=== PATIENT | female | born 1980 | race Caucasian/White ===

== ENCOUNTER 2022-03-15 22:35 | Inpatient (IN) | payer BC ==
[2022-03-15] MEDS ORDERED: FENTANYL 50 MCG/ML 1 ML VIAL ONE (23:53)
[2022-03-15] MEDS ORDERED: Octreotide Acetate 500 MCG/ML VIAL ONE (23:53)
[2022-03-15] MEDS ORDERED: LORazepam 2 MG/ML SYR.(CARPUJECT) ONE (23:58)
[2022-03-15] MEDS ORDERED: Octreotide Acetate 50 MCG/ML AMP SLOW IVP SCH (23:59)
[2022-03-16 00:03] LABS: Pregnancy Test - Urine (BHCG) Negative (Negative); Pregu Control Background? CLEAR/WHITE (CLR/WHITE); Pregu Control Bar Appear? YES (CONTROL BAR); Specific Gravity 1.021 (1.002-1.036)
[2022-03-16 00:12] LABS: Bilirubin Negative (Negative); Blood, Urine Negative (Negative); Clarity Turbid (Clear); Glucose, Urine (Dipstick) Normal (Negative); Ketone, Urine 20 mg/dL (Negative); Leukocyte 25 Leu/uL (Negative); Nitrite Negative (Negative); Protein, Urine (Dipstick) 30 mg/dL (Neg-Trace); Specific Gravity, Urine 1.021 (1.002-1.036); Urobilinogen Normal mg/dL (Less than 2)
[2022-03-16] MEDS ORDERED: Octreotide Acetate 1,250 MCG in Sodium Chloride 0.9% 250 ML 250 ML IVPB SCH ×2 (00:15→02:30)
[2022-03-16 00:21] LABS: Hemoglobin 9.5 g/dL (12.0-16.0); Mean Corpuscular HGB CONC 34.1 g/dL (32.0-36.0); Mean Corpuscular Hemoglobin 32.4 pg (27.0-31.0); Mean Corpuscular Volume 94.9 fl (78.0-98.0); Mean Platelet Volume 7.7 fL (7.4-10.4); Platelet Count 146 10x3/uL (130-400); RBC Distribution Width 15.1 % (11.5-14.5)
[2022-03-16 00:31] LABS: BHCG - Serum Negative (NEGATIVE); Pregs Control Background? CLEAR/WHITE (CLR/WHITE); Pregs Control Bar Appear? YES (CONTROL BAR)
[2022-03-16 00:32] LABS: Bacteria/HPF 2+ HPF (None Seen); Squamous Epithelial 0-3 HPF (0-3); WBC/HPF 0-3 HPF (0-3)
[2022-03-16 00:33] LABS: INR-International Normal Ratio 2.3; PTT 34.4 sec (22.9-36.1); Prothrombin Time 26.4 sec (12.0-14.7)
[2022-03-16 00:36] LABS: Calcium Oxalate Crystals 1+ HPF (None Seen)
[2022-03-16 00:39] LABS: ALT (SGPT) 468 U/L (8-55); AST (SGOT) 1129 U/L (5-34); Albumin 3.5 g/dL (3.5-5.0); Alkaline Phosphatase 132 U/L (40-110); Anion Gap 23 mmol/L (10-20); BUN (Urea Nitrogen) 20 mg/dL (7.0-18.7); Bilirubin, Total 5.5 mg/dL (0.2-1.2); CK (CPK) 166 U/L (29-168); Calc. Creatinine Clearance 0 mL/min (70-130); Calcium 8.4 mg/dL (7.8-10.44); Carbon Dioxide 16 mmol/L (22-29); Chloride 108 mmol/L (98-107); Estimated GFR 67; Globulin 3.5 g/dL (2.4-3.5); Glucose 122 mg/dL (70-105); Lipase 4 U/L (8-78); Potassium 4.9 mmol/L (3.5-5.1); Sodium 142 mmol/L (136-145)
[2022-03-16 00:49] LABS: Anisocytosis SLIGHT = 6-15 cells (100X) (0-5/hpf); Band 16 % (5-11); Lymphocytes 6 % (21-51); MDiff Complete? YES; Monocytes 5 % (0-10); Neutrophil 72 % (42-75); Platelet Morphology Comment Appears Adequate; Red Blood Cell (RBC) Count 2.92 mill/uL (4.20-5.40); White Blood Cell (WBC) Count 21.3 10x3/uL (4.8-10.8)
[2022-03-16 00:52] LABS: Acetaminophen Less than 10.0 mcg/mL (10.0-30.0); Alcohol Less than 10 mg/dL (Less than 10); Salicylate Less than 8.0 mg/dL (15.0-30.0)
[2022-03-16 01:08] LABS: Amphetamine Not Detected (NotDetected); Barbiturates Screen Not Detected (NotDetected); Benzodiazepine Screen Not Detected (NotDetected); Cocaine Metabolite Screen Not Detected (NotDetected); Methadone Not Detected (NotDetected); Methamphetamine Not Detected (NotDetected); Opiate Screen Detected (NotDetected); Oxycodone Screen Not Detected (NotDetected); Phencyclidine (PCP) Not Detected (NotDetected); THC/Cannabinoid Screen Not Detected (NotDetected); Tricyclic Screen Detected (NotDetected)
[2022-03-16] MEDS ORDERED: Sodium Chloride 0.9% 1,000 ML IV SCH (02:15)
[2022-03-16] MEDS ORDERED: Ondansetron PF 4 MG/2 ML Vial IVP PRN (02:24)
[2022-03-16] MEDS ORDERED: cefTRIAXone\\ROCEPHIN 1 GM VIAL ONE (02:27)
[2022-03-16] MEDS ORDERED: Pantoprazole 80 MG in Sodium Chloride 0.9% 100 ML IVP SCH (02:30)
[2022-03-16 02:48] LABS: Hemoglobin 9.3 g/dL (12.0-16.0); Mean Corpuscular HGB CONC 33.7 g/dL (32.0-36.0); Mean Corpuscular Hemoglobin 32.8 pg (27.0-31.0); Mean Corpuscular Volume 97.4 fl (78.0-98.0); Mean Platelet Volume 8.2 fL (7.4-10.4); Platelet Count 110 10x3/uL (130-400); RBC Distribution Width 15.5 % (11.5-14.5); Red Blood Cell (RBC) Count 2.82 mill/uL (4.20-5.40); White Blood Cell (WBC) Count 18.6 10x3/uL (4.8-10.8)
[2022-03-16] MEDS ORDERED: Lorazepam 2 MG/ML VIAL SLOW IVP SCH (03:15)
[2022-03-16] MEDS ORDERED: LORazepam 2 MG/ML SYR.(CARPUJECT) IVP SCH (03:15)
[2022-03-16] MEDS ORDERED: Lorazepam 1 MG TAB PO PRN (03:25)
[2022-03-16] MEDS ORDERED: Lorazepam 2 MG/ML VIAL IM PRN (03:25)
[2022-03-16] MEDS ORDERED: Electrolyte Replacement Protocol 1 EACH FS SCH (03:30)
[2022-03-16] MEDS ORDERED: LORazepam 2 MG/ML SYR.(CARPUJECT) ONE (03:45)
[2022-03-16 04:33] LABS: INR-International Normal Ratio 2.5; PTT 37.4 sec (22.9-36.1); Prothrombin Time 28.2 sec (12.0-14.7)
[2022-03-16 04:55] LABS: Lactic Acid 4.7 mmol/L (0.5-2.2)
[2022-03-16 05:23] LABS: ALT (SGPT) 500 U/L (8-55); AST (SGOT) 1461 U/L (5-34); Albumin 3.1 g/dL (3.5-5.0); Alkaline Phosphatase 108 U/L (40-110); Anion Gap 17 mmol/L (10-20); BUN (Urea Nitrogen) 18 mg/dL (7.0-18.7); Bilirubin, Total 4.4 mg/dL (0.2-1.2); Calc. Creatinine Clearance 0 mL/min (70-130); Calcium 7.2 mg/dL (7.8-10.44); Carbon Dioxide 16 mmol/L (22-29); Chloride 112 mmol/L (98-107); Estimated GFR 90; Globulin 2.9 g/dL (2.4-3.5); Glucose 195 mg/dL (70-105); Potassium 4.9 mmol/L (3.5-5.1); Sodium 140 mmol/L (136-145)
[2022-03-16 05:25] VITALS: BMI 30.8
[2022-03-16 05:28] LABS: Critical Call Chem Troponin I RESULT DECREASING
[2022-03-16 05:32] LABS: SARS-CoV-2 NAA Rapid Test Not Detected (NotDetected)
[2022-03-16] MEDS: Multivitamins, Adult 10 ML, Folic Acid 1 MG, Thiamine HCl 100 MG in Dextrose 5 %-0.45 %... IV SCH (06:10)
[2022-03-16] MEDS: Lorazepam 1 MG TAB PO SCH ×4 (06:10→18:20)
[2022-03-16 08:05] LABS: Critical Call Chem Troponin I RESULT DECREASING; Troponin I 0.856 ng/mL (< 0.028)
[2022-03-16] MEDS ORDERED: FLU VACC QS2022-23(6MOS UP)/PF 60 MCG/0.5 ML SYRINGE IM ONE (09:00)
[2022-03-16] MEDS ORDERED: Propranolol HCl 20 MG TAB PO SCH (09:00)
[2022-03-16] MEDS ORDERED: Nitroglycerin 0.4 MG TAB (25 Tab Bottle) SL PRN (10:26)
[2022-03-16 10:43] LABS: Magnesium 1.3 mg/dL (1.6-2.6)
[2022-03-16] MEDS ORDERED: Magnesium Sulfate In Water 4 GM in Premix Bag 1 BAG IVPB SCH (11:00)
[2022-03-16] MEDS ORDERED: Dexamethasone 20 MG/5 ML VIAL ONE (11:49)
[2022-03-16] MEDS ORDERED: Ondansetron PF 4 MG/2 ML Vial ONE (11:49)
[2022-03-16] MEDS ORDERED: Phenylephrine 10 MG/ML VIAL ONE (11:49)
[2022-03-16] MEDS ORDERED: Succinylcholine 200 MG/10 ml SYRINGE FS ONE (11:49)
[2022-03-16] MEDS ORDERED: PROPOFOL 200 MG/20 ML VIAL ONE (11:49)
[2022-03-16] MEDS ORDERED: ePHEDrine 50 MG/ML VIAL ONE (11:49)
[2022-03-16] MEDS ORDERED: Sodium Phosphate 15 MMOL in Sodium Chloride 0.9% 250 ML 250 ML IVPB SCH (12:00)
[2022-03-16 14:38] LABS: Hemoglobin 9.1 g/dL (12.0-16.0); Platelet Count 101 10x3/uL (130-400)
[2022-03-16 14:49] LABS: Lactic Acid 2.4 mmol/L (0.5-2.2)
[2022-03-16 14:52] LABS: Anion Gap 12 mmol/L (10-20); BUN (Urea Nitrogen) 17 mg/dL (7.0-18.7); Calc. Creatinine Clearance 121 mL/min (70-130); Calcium 7.9 mg/dL (7.8-10.44); Carbon Dioxide 24 mmol/L (22-29); Chloride 108 mmol/L (98-107); Estimated GFR 101; Glucose 92 mg/dL (70-105); Potassium 4.5 mmol/L (3.5-5.1); Sodium 139 mmol/L (136-145)
[2022-03-16] MEDS: Lactated Ringer's 1,000 ML IV SCH ×2 (15:44→22:39)
[2022-03-16] MEDS: Pantoprazole 80 MG, Admixture Fee 1 EACH in Sodium Chloride 0.9% 100 ML IVP SCH (15:44)
[2022-03-16] MEDS: Propranolol 10 MG TAB PO SCH ×2 (15:45→20:48)
[2022-03-16] MEDS: Promethazine HCl 25 MG in Sodium Chloride 0.9% 50 ML IVPB PRN ×2 (15:55→20:48)
[2022-03-16 20:46] LABS: Hemoglobin 8.6 g/dL (12.0-16.0); Platelet Count 90 10x3/uL (130-400)
[2022-03-16] MEDS ORDERED: hydrALAZINE 25 MG TAB PO SCH (22:30)
[2022-03-17] MEDS ORDERED: Promethazine HCl 25 MG in Sodium Chloride 0.9% 50 ML IVPB SCH (00:15)
[2022-03-17] MEDS: Lorazepam 1 MG TAB PO SCH ×3 (00:33→14:12)
[2022-03-17] MEDS: Pantoprazole 80 MG, Admixture Fee 1 EACH in Sodium Chloride 0.9% 100 ML IVP SCH (00:33)
[2022-03-17] MEDS: Multivitamins, Adult 10 ML, Folic Acid 1 MG, Thiamine HCl 100 MG in Dextrose 5 %-0.45 %... IV SCH (03:13)
[2022-03-17] MEDS: cefTRIAXone\\ROCEPHIN 1 GM in Sodium Chloride 0.9% 100 ML IVPB SCH (03:14)
[2022-03-17] MEDS ORDERED: Lorazepam 1 MG TAB PO PRN (03:25)
[2022-03-17 06:59] LABS: Lactic Acid 3.1 mmol/L (0.5-2.2)
[2022-03-17 07:11] LABS: ALT (SGPT) 395 U/L (8-55); AST (SGOT) 769 U/L (5-34); Albumin 3.2 g/dL (3.5-5.0); Alkaline Phosphatase 121 U/L (40-110); Anion Gap 13 mmol/L (10-20); BUN (Urea Nitrogen) 13 mg/dL (7.0-18.7); Bilirubin, Total 2.9 mg/dL (0.2-1.2); Calc. Creatinine Clearance 131 mL/min (70-130); Calcium 8.1 mg/dL (7.8-10.44); Carbon Dioxide 20 mmol/L (22-29); Chloride 110 mmol/L (98-107); Estimated GFR 110; Globulin 3.4 g/dL (2.4-3.5); Glucose 163 mg/dL (70-105); Iron 240 ug/dL (50-170); Iron Binding Capacity, Total 225 mcg/dL (265-497); Magnesium 2.3 mg/dL (1.6-2.6); Phosphorus 1.4 mg/dL (2.3-4.7); Potassium 4.1 mmol/L (3.5-5.1); Protein, Total 6.6 g/dL (6.0-8.3); Sodium 139 mmol/L (136-145)
[2022-03-17] MEDS ORDERED: Lactulose 10 GM/15 ML Oral Solution PR SCH (07:45)
[2022-03-17] MEDS ORDERED: PHOS-NAK 1 PKT PACK PO SCH (08:00)
[2022-03-17] MEDS ORDERED: Potassium Phosphate 22 MMOL in Sodium Chloride 0.9% 250 ML 250 ML IVPB SCH (08:30)
[2022-03-17] MEDS ORDERED: Lorazepam 2 MG/ML VIAL ONE (10:12)
[2022-03-17] MEDS ORDERED: Lorazepam 2 MG/ML VIAL SLOW IVP PRN (10:17)
[2022-03-17] MEDS ORDERED: Electrolyte Replacement Protocol 1 EACH FS SCH (10:30)
[2022-03-17] MEDS ORDERED: Electrolyte Replacement Protocol FS PRN (10:45)
[2022-03-17] MEDS: Propranolol 10 MG TAB PO SCH ×4 (11:05→21:16)
[2022-03-17 16:15] LABS: Reticulocyte Count 8.7 % (0.5-1.5)
[2022-03-17 16:16] LABS: #Lymphocytes 2.1 thou/uL (1.20-3.40); #Monocytes 0.5 thou/uL (0.11-0.59); #Neutrophils 7.6 thou/uL (1.40-6.50); %Basophils 0.1 % (0.0-1.0); %Eosinophils 0.1 % (0.0-10.0); %Lymphocytes 20.7 % (21.0-51.0); %Monocytes 5.1 % (0.0-10.0); Hemoglobin 7.7 g/dL (12.0-16.0); Mean Corpuscular HGB CONC 34.5 g/dL (32.0-36.0); Mean Corpuscular Hemoglobin 33.7 pg (27.0-31.0); Mean Corpuscular Volume 97.7 fl (78.0-98.0); Mean Platelet Volume 8.1 fL (7.4-10.4); Platelet Count 77 10x3/uL (130-400); RBC Distribution Width 15.8 % (11.5-14.5); Red Blood Cell (RBC) Count 2.27 mill/uL (4.20-5.40); White Blood Cell (WBC) Count 10.3 10x3/uL (4.8-10.8)
[2022-03-17 17:05] LABS: HBCM Index 0.18 S/CO (0-0.79); HBSAg Index 0.28 S/CO (0-0.99); Hep A IgM AB Non-Reactive (NonReactive); Hep A IgM S/CO 0.17 S/CO (0-0.79); Hep B Surf Ag Non-Reactive S/CO (NonReactive); Hep C IgG Ab Non-Reactive (NonReactive); Hep C Index 0.07 S/CO (0-0.79); Hepatitis B Core IgM Abs Non-Reactive (NonReactive)
[2022-03-17] MEDS: Lactated Ringer's 1,000 ML IV SCH (17:57)
[2022-03-17] MEDS: Pantoprazole 40 MG VIAL IVP SCH (21:16)
[2022-03-18] MEDS ORDERED: Lorazepam 1 MG TAB PO PRN (03:25)
[2022-03-18] MEDS ORDERED: Lorazepam 0.5 MG TAB PO SCH (03:30)
[2022-03-18] MEDS: Multivitamins, Adult 10 ML, Folic Acid 1 MG, Thiamine HCl 100 MG in Dextrose 5 %-0.45 %... IV SCH (03:54)
[2022-03-18] MEDS: cefTRIAXone\\ROCEPHIN 1 GM in Sodium Chloride 0.9% 100 ML IVPB SCH (03:54)
[2022-03-18 04:28] LABS: #Lymphocytes 2.3 thou/uL (1.20-3.40); #Monocytes 0.4 thou/uL (0.11-0.59); #Neutrophils 5.3 thou/uL (1.40-6.50); %Eosinophils 0.2 % (0.0-10.0); %Lymphocytes 28.7 % (21.0-51.0); %Monocytes 5.1 % (0.0-10.0); Hemoglobin 7.9 g/dL (12.0-16.0); Mean Corpuscular Hemoglobin 33.4 pg (27.0-31.0); Mean Corpuscular Volume 98.2 fl (78.0-98.0); Mean Platelet Volume 8.3 fL (7.4-10.4); Platelet Count 73 10x3/uL (130-400); Red Blood Cell (RBC) Count 2.37 mill/uL (4.20-5.40); White Blood Cell (WBC) Count 8.1 10x3/uL (4.8-10.8)
[2022-03-18 05:00] LABS: ALT (SGPT) 309 U/L (8-55); AST (SGOT) 464 U/L (5-34); Albumin 3.2 g/dL (3.5-5.0); Alkaline Phosphatase 112 U/L (40-110); Anion Gap 12 mmol/L (10-20); BUN (Urea Nitrogen) 16 mg/dL (7.0-18.7); Bilirubin, Total 3.1 mg/dL (0.2-1.2); Calc. Creatinine Clearance 121 mL/min (70-130); Calcium 8.1 mg/dL (7.8-10.44); Carbon Dioxide 20 mmol/L (22-29); Chloride 111 mmol/L (98-107); Estimated GFR 101; Globulin 2.9 g/dL (2.4-3.5); Glucose 148 mg/dL (70-105); Magnesium 1.9 mg/dL (1.6-2.6); Phosphorus 2.6 mg/dL (2.3-4.7); Potassium 3.7 mmol/L (3.5-5.1); Protein, Total 6.1 g/dL (6.0-8.3); Sodium 139 mmol/L (136-145)
[2022-03-18 06:51] LABS: Ferritin 689.72 ng/mL (10-291)
[2022-03-18] MEDS: Lactated Ringer's 1,000 ML IV SCH ×3 (07:23→20:39)
[2022-03-18] MEDS ORDERED: Magnesium 2 GM/50 ML(in water) 2 GM in Premix Bag 1 BAG IVPB SCH (08:00)
[2022-03-18] MEDS: Pantoprazole 40 MG VIAL IVP SCH ×2 (10:20→20:41)
[2022-03-18] MEDS: Phytonadione 10 MG/ML AMP SC SCH (10:21)
[2022-03-18] MEDS: Propranolol 10 MG TAB PO SCH ×3 (10:22→20:42)
[2022-03-18] MEDS: traMADol HCl 50 MG TAB PO PRN (17:52)
[2022-03-18] MEDS: Rifaximin 550 MG TAB PO SCH (20:40)
[2022-03-19] MEDS: cefTRIAXone\\ROCEPHIN 1 GM in Sodium Chloride 0.9% 100 ML IVPB SCH (02:25)
[2022-03-19 04:27] LABS: INR-International Normal Ratio 1.5; Prothrombin Time 18.9 sec (12.0-14.7)
[2022-03-19 04:32] LABS: Anion Gap 13 mmol/L (10-20); BUN (Urea Nitrogen) 13 mg/dL (7.0-18.7); Calc. Creatinine Clearance 101 mL/min (70-130); Calcium 8.3 mg/dL (7.8-10.44); Carbon Dioxide 21 mmol/L (22-29); Chloride 108 mmol/L (98-107); Estimated GFR 81; Glucose 165 mg/dL (70-105); Potassium 3.3 mmol/L (3.5-5.1); Sodium 139 mmol/L (136-145)
[2022-03-19 04:57] LABS: #Eosinphils 0.4 thou/uL (0.0-0.7); #Lymphocytes 3.7 thou/uL (1.20-3.40); #Monocytes 0.9 thou/uL (0.11-0.59); #Neutrophils 7.6 thou/uL (1.40-6.50); %Basophils 0.4 % (0.0-1.0); %Lymphocytes 29.2 % (21.0-51.0); %Monocytes 7.1 % (0.0-10.0); %Neutrophils 60.3 % (42.0-75.0); Anisocytosis SLIGHT = 6-15 cells (100X) (0-5/hpf); MDiff Complete? YES; Mean Corpuscular HGB CONC 35.6 g/dL (32.0-36.0); Mean Corpuscular Hemoglobin 35.1 pg (27.0-31.0); Mean Corpuscular Volume 98.8 fl (78.0-98.0); Mean Platelet Volume 7.4 fL (7.4-10.4); Platelet Count 98 10x3/uL (130-400); Platelet Morphology Comment Appears Decreased; RBC Distribution Width 16.6 % (11.5-14.5); Red Blood Cell (RBC) Count 2.55 mill/uL (4.20-5.40); White Blood Cell (WBC) Count 12.6 10x3/uL (4.8-10.8)
[2022-03-19] MEDS: traMADol HCl 50 MG TAB PO PRN ×2 (05:30→23:33)
[2022-03-19] MEDS: Rifaximin 550 MG TAB PO SCH ×2 (08:40→21:35)
[2022-03-19] MEDS: Propranolol 10 MG TAB PO SCH ×3 (08:40→21:54)
[2022-03-19] MEDS: Multivit, Therapeutic 1 TAB PO SCH (08:40)
[2022-03-19] MEDS: Phytonadione 10 MG/ML AMP SC SCH (08:41)
[2022-03-19] MEDS: Pantoprazole 40 MG VIAL IVP SCH ×2 (08:41→21:35)
[2022-03-19] MEDS ORDERED: Potassium Chloride 20 MEQ TAB PO SCH (09:00)
[2022-03-19 10:03] LABS: AST (SGOT) 354 U/L (5-34); Bilirubin, Total 3.9 mg/dL (0.2-1.2)
[2022-03-19 10:36] LABS: ALT (SGPT) 281 U/L (8-55); Albumin 3.5 g/dL (3.5-5.0); Alkaline Phosphatase 126 U/L (40-110); Bilirubin, Direct 2.3 mg/dL (0.1-0.3); Phosphorus 1.9 mg/dL (2.3-4.7); Protein, Total 6.8 g/dL (6.0-8.3)
[2022-03-19] MEDS ORDERED: Prochlorperazine Edisylate 10 MG in Sodium Chloride 0.9% 50 ML IVPB SCH (10:45)
[2022-03-19] MEDS ORDERED: diphenhydrAMINE 25 MG CAP PO SCH (10:45)
[2022-03-19 13:51] LABS: Potassium 3.5 mmol/L (3.5-5.1)
[2022-03-19] MEDS: Lactated Ringer's 1,000 ML IV SCH (14:51)
[2022-03-19] MEDS: PHOS-NAK 1 PKT PACK PO SCH ×2 (14:52→18:12)
[2022-03-19] MEDS: Lorazepam 0.5 MG TAB PO PRN (21:54)
[2022-03-19] MEDS ORDERED: Melatonin 3 MG TAB PO SCH (22:00)
[2022-03-20] MEDS: cefTRIAXone\\ROCEPHIN 1 GM in Sodium Chloride 0.9% 100 ML IVPB SCH (02:00)
[2022-03-20] MEDS: Lactated Ringer's 1,000 ML IV SCH ×2 (06:21→22:30)
[2022-03-20 06:57] LABS: #Eosinphils 0.6 thou/uL (0.0-0.7); #Lymphocytes 3.9 thou/uL (1.20-3.40); #Monocytes 1.2 thou/uL (0.11-0.59); #Neutrophils 4.8 thou/uL (1.40-6.50); %Basophils 0.3 % (0.0-1.0); %Eosinophils 5.9 % (0.0-10.0); %Lymphocytes 36.8 % (21.0-51.0); %Monocytes 11.6 % (0.0-10.0); %Neutrophils 45.4 % (42.0-75.0); Mean Corpuscular HGB CONC 33.8 g/dL (32.0-36.0); Mean Corpuscular Hemoglobin 33.6 pg (27.0-31.0); Mean Corpuscular Volume 99.4 fl (78.0-98.0); Mean Platelet Volume 7.2 fL (7.4-10.4); Platelet Count 117 10x3/uL (130-400); RBC Distribution Width 16.7 % (11.5-14.5); Red Blood Cell (RBC) Count 2.69 mill/uL (4.20-5.40); White Blood Cell (WBC) Count 10.5 10x3/uL (4.8-10.8)
[2022-03-20 07:08] LABS: ALT (SGPT) 197 U/L (8-55); AST (SGOT) 218 U/L (5-34); Albumin 3.2 g/dL (3.5-5.0); Alkaline Phosphatase 136 U/L (40-110); Anion Gap 13 mmol/L (10-20); BUN (Urea Nitrogen) 7 mg/dL (7.0-18.7); Calc. Creatinine Clearance 119 mL/min (70-130); Calcium 8.3 mg/dL (7.8-10.44); Carbon Dioxide 22 mmol/L (22-29); Chloride 106 mmol/L (98-107); Estimated GFR 100; Globulin 3.1 g/dL (2.4-3.5); Glucose 154 mg/dL (70-105); Potassium 3.3 mmol/L (3.5-5.1); Protein, Total 6.3 g/dL (6.0-8.3); Sodium 138 mmol/L (136-145)
[2022-03-20 07:58] LABS: Magnesium 1.3 mg/dL (1.6-2.6); Phosphorus 3.7 mg/dL (2.3-4.7)
[2022-03-20] MEDS: Pantoprazole 40 MG VIAL IVP SCH ×2 (08:11→20:38)
[2022-03-20] MEDS: Multivit, Therapeutic 1 TAB PO SCH (08:11)
[2022-03-20] MEDS: Rifaximin 550 MG TAB PO SCH ×2 (08:11→20:38)
[2022-03-20] MEDS: Phytonadione 10 MG/ML AMP SC SCH (08:17)
[2022-03-20] MEDS: Propranolol 10 MG TAB PO SCH ×3 (09:20→20:38)
[2022-03-20] MEDS ORDERED: Potassium Chloride 20 MEQ TAB PO SCH (10:30)
[2022-03-20] MEDS ORDERED: Magnesium Sulfate In Water 4 GM in Premix Bag 1 BAG IVPB SCH (10:45)
[2022-03-20 13:38] LABS: ANA Symphony (Qualitative) Negative (Negative); ANA Symphony (Quantitative) 0.4 Ratio (< 0.7 Negative); EliA Vaculitis New Method **** NEW METHOD ****; Mitochondrial Ab 1.5 U/mL (<4 Negative); dsDNA IgG Antibody 2.1 IU/mL (<10 Negative)
[2022-03-20 16:39] LABS: Anion Gap 14 mmol/L (10-20); BUN (Urea Nitrogen) 6 mg/dL (7.0-18.7); Calc. Creatinine Clearance 113 mL/min (70-130); Calcium 8.7 mg/dL (7.8-10.44); Carbon Dioxide 23 mmol/L (22-29); Chloride 104 mmol/L (98-107); Estimated GFR 94; Glucose 111 mg/dL (70-105); Magnesium 2.3 mg/dL (1.6-2.6); Potassium 3.8 mmol/L (3.5-5.1); Sodium 137 mmol/L (136-145)
[2022-03-20] MEDS: Lorazepam 0.5 MG TAB PO PRN (20:38)
[2022-03-20] MEDS: traMADol HCl 50 MG TAB PO PRN (20:46)
[2022-03-21] MEDS: cefTRIAXone\\ROCEPHIN 1 GM in Sodium Chloride 0.9% 100 ML IVPB SCH (01:59)
[2022-03-21 08:17] VITALS: BP 118/82; TEMP 98.5
[2022-03-21] MEDS: Pantoprazole 40 MG VIAL IVP SCH (09:04)
[2022-03-21] MEDS: Propranolol 10 MG TAB PO SCH (09:04)
[2022-03-21] MEDS: Rifaximin 550 MG TAB PO SCH (09:04)
[2022-03-21] MEDS: Lactated Ringer's 1,000 ML IV SCH (09:04)
[2022-03-21] MEDS: Multivit, Therapeutic 1 TAB PO SCH (09:29)
== END 2022-03-21 10:54 | disposition home or self-care (01) | DRG 377 ==
LOC: ERS 22:35 → IMCU/EMU 03-16 02:17 → T4-A 03-19 14:25
PROVIDERS: ADMIT Internal Medicine Nephrology; ATTEND Internal Medicine
PROC: 0DJ08ZZ Inspection of Upper Intestinal Tract, Via Natural or Artificial Opening Endoscopic (ICD-10-PCS; principal; 2022-03-16)
DX: K92.2 Gastrointestinal hemorrhage, unspecified (principal); G93.41 Metabolic encephalopathy; I21.A1 Myocardial infarction type 2; D62 Acute posthemorrhagic anemia; E87.20 Acidosis, unspecified; N17.9 Acute kidney failure, unspecified; F10.130 Alcohol abuse with withdrawal, uncomplicated; F05 Delirium due to known physiological condition; K86.1 Other chronic pancreatitis; F32.A Depression, unspecified; R79.89 Other specified abnormal findings of blood chemistry; D69.6 Thrombocytopenia, unspecified; R79.1 Abnormal coagulation profile; K70.10 Alcoholic hepatitis without ascites; I85.10 Secondary esophageal varices without bleeding; K70.30 Alcoholic cirrhosis of liver without ascites; K72.90 Hepatic failure, unspecified without coma; K80.20 Calculus of gallbladder without cholecystitis without obstruction; I27.20 Pulmonary hypertension, unspecified; K29.20 Alcoholic gastritis without bleeding; E66.9 Obesity, unspecified; Z71.6 Tobacco abuse counseling; Z79.899 Other long term (current) drug therapy; Z78.1 Physical restraint status; Z88.8 Allergy status to other drugs, medicaments and biological substances; Z88.1 Allergy status to other antibiotic agents; Z68.30 Body mass index [BMI] 30.0-30.9, adult
CPT/HCPCS: 36415; 71045; 74018; 74177; 80048; 80053; 80074; 80306; 80307; 81003; 81015; 81025; 82140; 82274; 82550; 82553; 82728; 83516; 83540; 83550; 83605; 83690; 83735; 83880; 84100; 84443; 84484; 84703; 85025; 85046; 85610; 85730; 86015; 86038; 86225; 86850; 86900; 86901; 87040; 93005; 93306; 94760; 96374; 96375; 96376; C9113; J0696; J0780; J1100; J2060; J2354; J2370; J2405; J2550; J2704; J3010; J3411; J3430; J3475; J3490; J7042; J7050; J7120; U0002

== ENCOUNTER 2022-10-21 17:22 | Inpatient (IN) | payer BC, SELFPAY ==
[2022-10-21] MEDS ORDERED: Pantoprazole 40 MG VIAL ONE (17:55)
[2022-10-21] MEDS ORDERED: Promethazine HCl 25 MG SUPP ONE (17:55)
[2022-10-21] MEDS ORDERED: Pantoprazole 80 MG, Admixture Fee 1 EACH in Sodium Chloride 0.9% 100 ML IVPB SCH (18:15)
[2022-10-21] MEDS ORDERED: Promethazine HCl 25 MG in Sodium Chloride 0.9% 50 ML IVPB SCH ×2 (18:15→19:30)
[2022-10-21] MEDS ORDERED: Octreotide Acetate 1,250 MCG in Sodium Chloride 0.9% 250 ML 250 ML IVPB SCH (18:15)
[2022-10-21 18:33] LABS: #Basophils 0.1 thou/uL (0.0-0.2); #Monocytes 1.7 thou/uL (0.11-0.59); #Neutrophils 10.6 thou/uL (1.40-6.50); %Basophils 0.8 % (0.0-1.0); %Eosinophils 0.1 % (0.0-10.0); %Lymphocytes 19.1 % (21.0-51.0); %Monocytes 10.9 % (0.0-10.0); %Neutrophils 68.4 % (42.0-75.0); Hemoglobin 6.6 g/dL (12.0-16.0); Mean Corpuscular HGB CONC 29.9 g/dL (32.0-36.0); Mean Corpuscular Hemoglobin 27.7 pg (27.0-31.0); Mean Corpuscular Volume 92.9 fl (78.0-98.0); Mean Platelet Volume 10.6 fL (7.4-10.4); Platelet Count 266 10x3/uL (130-400); RBC Distribution Width 16.5 % (11.5-14.5); Red Blood Cell (RBC) Count 2.38 mill/uL (4.20-5.40); White Blood Cell (WBC) Count 15.5 10x3/uL (4.8-10.8)
[2022-10-21 18:42] LABS: BHCG - Serum Negative (NEGATIVE); Pregs Control Background? CLEAR/WHITE (CLR/WHITE); Pregs Control Bar Appear? YES (CONTROL BAR)
[2022-10-21 18:44] LABS: INR-International Normal Ratio 2.1; PTT 31.2 sec (22.9-36.1); Prothrombin Time 24.8 sec (12.0-14.7)
[2022-10-21 18:57] LABS: ALT (SGPT) 42 U/L (8-55); AST (SGOT) 109 U/L (5-34); Albumin 3.8 g/dL (3.5-5.0); Alkaline Phosphatase 152 U/L (40-110); BUN (Urea Nitrogen) 17 mg/dL (7.0-18.7); Bilirubin, Total 2.1 mg/dL (0.2-1.2); Calc. Creatinine Clearance 0 mL/min (70-130); Calcium 8.8 mg/dL (7.8-10.44); Chloride 105 mmol/L (98-107); Estimated GFR 47; Globulin 3.2 g/dL (2.4-3.5); Glucose 122 mg/dL (70-105); Lipase 15 U/L (8-78); Magnesium 1.3 mg/dL (1.6-2.6); Potassium 4.5 mmol/L (3.5-5.1); Sodium 145 mmol/L (136-145)
[2022-10-21 19:04] LABS: Carbon Dioxide Less than 8 mmol/L (22-29)
[2022-10-21] MEDS ORDERED: cefTRIAXone (ROCEPHIN) 2 GM VIAL ONE (19:12)
[2022-10-21 19:19] LABS: CKMB 4.1 ng/mL (0-6.6)
[2022-10-21] MEDS ORDERED: LORazepam 2 MG/ML SYR.(CARPUJECT) ONE (19:56)
[2022-10-21] MEDS ORDERED: Magnesium 2 GM/50 ML BAG (IN WATER) ONE (19:58)
[2022-10-21 19:59] LABS: Base Excess -21.8 mEq/L (-2.0 to +3.0); Calcium, Ionized (venous) 0.95 mmol/L (1.16-1.32); Chloride (VBG) 109 mmol/L (98-106); Hematocrit-VBG 21 % (36.0-47.0); Hemoglobin (Hb) 7.3 g/dL (11.7-15.5); Potassium (VBG) 4.93 mmol/L (3.70-5.30)
[2022-10-21 20:00] LABS: Actual Bicarbonate (HCO3v) 6.1 mEq/L (22-28); pH (venous) 7.094 (7.32-7.43)
[2022-10-21] MEDS ORDERED: EPINEPHrine 1 MG/10 ML Abboject SYRINGE ONE (20:09)
[2022-10-21] MEDS ORDERED: Vasopressin 20 UNITS/ML VIAL ONE (20:11)
[2022-10-21] MEDS ORDERED: fentaNYL 50 mcg/mL 1 mL Vial ONE ×2 (20:11)
[2022-10-21] MEDS ORDERED: Phenylephrine 10 MG/ML VIAL ONE (20:11)
[2022-10-21] MEDS ORDERED: Lorazepam 1 MG TAB PO PRN (20:21)
[2022-10-21] MEDS ORDERED: Lorazepam 2 MG/ML VIAL IM PRN (20:21)
[2022-10-21] MEDS ORDERED: PROPOFOL 200 MG/20 ML VIAL ONE (20:28)
[2022-10-21] MEDS ORDERED: PHENYLEPHRINE-NS 100 MCG/ML 10 ML SYRINGE ONE (20:28)
[2022-10-21] MEDS ORDERED: Rocuronium Bromide 10 MG/ML (10ML VIAL) ONE (20:28)
[2022-10-21] MEDS ORDERED: Succinylcholine 200 MG/10 ml SYRINGE FS ONE (20:28)
[2022-10-21] MEDS ORDERED: Lidocaine 1% PF 5 ML VIAL ONE (20:28)
[2022-10-21] MEDS ORDERED: Lorazepam 1 MG TAB PO SCH (20:30)
[2022-10-21] MEDS ORDERED: Electrolyte Replacement Protocol 1 EACH FS SCH (20:30)
[2022-10-21 20:51] LABS: Bacteria/HPF None Seen HPF (None Seen); Bilirubin Negative (Negative); Blood, Urine Negative (Negative); CAUTI Indications for Culture Urological Procedure; Clarity Clear (Clear); Glucose, Urine (Dipstick) Normal (Negative); Ketone, Urine 20 mg/dL (Negative); Leukocyte Negative Leu/uL (Negative); Nitrite Negative (Negative); Protein, Urine (Dipstick) 10 mg/dL (Neg-Trace); RBC/HPF None Seen HPF (0-3); Specific Gravity, Urine 1.016 (1.002-1.036); Squamous Epithelial 0-3 HPF (0-3); Urobilinogen Normal mg/dL (Less than 2); WBC/HPF 0-3 HPF (0-3)
[2022-10-21 20:52] LABS: Urine Culture Reflex Yes Yes
[2022-10-21] MEDS ORDERED: Sodium Bicarbonate 75 MEQ in Sodium Chloride 0.45% 1,000 ML IV SCH (21:00)
[2022-10-21] MEDS ORDERED: Ketamine 50 MG/ML (10ML VIAL) ONE (21:32)
[2022-10-21] MEDS ORDERED: Ventilator Sedation Protocol 1 EACH FS ONE (21:43)
[2022-10-21] MEDS ORDERED: DISCONTINUE PREVIOUS NARCOTIC PAIN MEDICATIONS AND BENZODIAZEPINES FS SCH (21:45)
[2022-10-21] MEDS ORDERED: Lorazepam 2 MG/ML VIAL SLOW IVP PRN (21:45)
[2022-10-21] MEDS ORDERED: Propofol BOLUS 1,000 MG/100 ML VIAL IV PRN (21:45)
[2022-10-21] MEDS ORDERED: Morphine 2 MG/ML VIAL SLOW IVP PRN (21:45)
[2022-10-21] MEDS ORDERED: Fentanyl BOLUS 250 ML IVPB PRN (21:45)
[2022-10-21] MEDS ORDERED: Propofol 1,000 MG/100 ML VIAL IV PRN (21:45)
[2022-10-21] MEDS ORDERED: Dexmedetomidine 400 MCG, Admixture Fee 1 EACH in Sodium Chloride 0.9% 96 ML IVPB SCH (22:15)
[2022-10-21] MEDS ORDERED: Dexmedetomidine In 0.9 % NaCl 100 ML IVPB SCH (22:15)
[2022-10-21] MEDS: Vecuronium 10 MG VIAL IVP SCH ×3 (22:16→23:55)
[2022-10-21] MEDS ORDERED: Sterile Water 10 ML VIAL IVP PRN (22:16)
[2022-10-21 22:22] LABS: Base Excess (BEa) -18.1 mEq/L (-2.0 to +3.0); CO2 Tension 40.1 mmHg (35.0-45.0); Calcium, Ionized (arterial) 0.83 mmol/L (1.12-1.30); Carboxyhemoglobin (COHb) 0.6 gm% (0.0-3.0); Hematocrit-ABG 39 % (36.0-47.0); Hemoglobin (Hb) 13.1 g/dL (12.0-16.0); O2 Tension (PaO2), arterial 376.9 mmHg (80.0-100.0)
[2022-10-21] MEDS ORDERED: Sodium Bicarb 50 MEQ/50 ML VIAL ONE ×2 (22:24→22:29)
[2022-10-21 22:25] LABS: Puncture Site RR
[2022-10-21 22:26] LABS: ALV-art Gradient 285.975 mmHg (0-20)
[2022-10-21] MEDS ORDERED: Sodium Bicarb 50 MEQ/50 ML VIAL IVP SCH (22:30)
[2022-10-21] MEDS: Multivitamins, Adult 10 ML, Folic Acid 1 MG, Thiamine HCl 100 MG in Dextrose 5 %-0.45 %... IV SCH ×2 (22:43→22:56)
[2022-10-21] MEDS: Magnesium 2 GM/50 ML(in water) 2 GM in Premix Bag 1 BAG IVPB SCH ×2 (22:45→23:49)
[2022-10-21] MEDS: Thiamine HCl 200 MG/2 ML VIAL SLOW IVP SCH ×2 (22:46→23:50)
[2022-10-21] MEDS ORDERED: Dextrose 50% Abboject 50 ML SYRINGE SLOW IVP PRN ×2 (22:53→23:26)
[2022-10-21] MEDS ORDERED: Glucagon 1 MG/ML KIT IM PRN (22:53)
[2022-10-21] MEDS ORDERED: Dextrose 5% in Water 1,000 ML IV PRN (22:53)
[2022-10-21 22:57] LABS: #Basophils 0.1 thou/uL (0.0-0.2); #Monocytes 1.6 thou/uL (0.11-0.59); #Neutrophils 15.3 thou/uL (1.40-6.50); %Basophils 0.5 % (0.0-1.0); %Eosinophils 0.1 % (0.0-10.0); %Lymphocytes 9.1 % (21.0-51.0); %Monocytes 8.5 % (0.0-10.0); %Neutrophils 80.9 % (42.0-75.0); Mean Corpuscular HGB CONC 33.2 g/dL (32.0-36.0); Mean Corpuscular Hemoglobin 29.6 pg (27.0-31.0); RBC Distribution Width 14.8 % (11.5-14.5); Red Blood Cell (RBC) Count 3.92 mill/uL (4.20-5.40)
[2022-10-21 23:01] LABS: Actual Bicarbonate (HCO3a) 16.5 mEq/L (22-28); Base Excess (BEa) -7.9 mEq/L (-2.0 to +3.0); CO2 Tension 30.8 mmHg (35.0-45.0); Calcium, Ionized (arterial) 0.81 mmol/L (1.12-1.30); Carboxyhemoglobin (COHb) 0.6 gm% (0.0-3.0); Hematocrit-ABG 37 % (36.0-47.0); Hemoglobin (Hb) 12.7 g/dL (12.0-16.0); pH, Arterial 7.348 (7.35-7.45)
[2022-10-21 23:02] LABS: Potassium - ABG Lab 6.21 mmol/L (3.70-5.30); Puncture Site LINE
[2022-10-21 23:06] LABS: Hemoglobin 11.6 g/dL (12.0-16.0)
[2022-10-21 23:08] LABS: Platelet Count 137 10x3/uL (130-400)
[2022-10-21 23:16] VITALS: BMI 32.3
[2022-10-21 23:18] LABS: Bilirubin, Direct 1.5 mg/dL (0.1-0.3); Phosphorus 5.1 mg/dL (2.3-4.7)
[2022-10-21 23:24] LABS: ALT (SGPT) 53 U/L (8-55); AST (SGOT) 155 U/L (5-34); Albumin 3.4 g/dL (3.5-5.0); Alcohol Less than 10.0 mg/dL (Less than 10); Alkaline Phosphatase 115 U/L (40-110); Anion Gap 33 mmol/L (10-20); BUN (Urea Nitrogen) 15 mg/dL (7.0-18.7); Bilirubin, Total 2.4 mg/dL (0.2-1.2); Calc. Creatinine Clearance 89 mL/min (70-130); Calcium 7.1 mg/dL (7.8-10.44); Carbon Dioxide 13 mmol/L (22-29); Chloride 110 mmol/L (98-107); Estimated GFR 70; Globulin 2.8 g/dL (2.4-3.5); Glucose 172 mg/dL (70-105); Magnesium 1.2 mg/dL (1.6-2.6); Potassium 6.6 mmol/L (3.5-5.1); Protein, Total 6.2 g/dL (6.0-8.3); Sodium 149 mmol/L (136-145)
[2022-10-21 23:27] LABS: Amphetamine Not Detected (NotDetected); Barbiturates Screen Not Detected (NotDetected); Benzodiazepine Screen Not Detected (NotDetected); Cocaine Metabolite Screen Not Detected (NotDetected); Methadone Not Detected (NotDetected); Methamphetamine Not Detected (NotDetected); Opiate Screen Not Detected (NotDetected); Oxycodone Screen Not Detected (NotDetected); Phencyclidine (PCP) Not Detected (NotDetected); THC/Cannabinoid Screen Not Detected (NotDetected); Tricyclic Screen Detected (NotDetected)
[2022-10-21 23:29] LABS: Lactic Acid Greater than 13.4 mmol/L (0.5-2.2)
[2022-10-21 23:41] LABS: CKMB 4.7 ng/mL (0-6.6)
[2022-10-21] MEDS ORDERED: CALCIUM GLUC 1 GM/NS 50 ML 1 GM in Premix Bag 1 BAG IVPB SCH (23:45)
[2022-10-21] MEDS ORDERED: Insulin Regular 300 UNITS/3 ML VIAL IVP SCH (23:45)
[2022-10-22 00:31] VITALS: BP 165/116
[2022-10-22 00:51] LABS: Fibrinogen 177 mg/dL (253-463)
[2022-10-22 00:52] LABS: D-Dimer Test 0.47 *mcg/mL (0.27-0.43); INR-International Normal Ratio 1.8; PTT 34.2 sec (22.9-36.1); Prothrombin Time 21.5 sec (12.0-14.7)
[2022-10-22 00:59] LABS: Platelet Count 75 10x3/uL (130-400)
[2022-10-22] MEDS: Vecuronium 10 MG VIAL IVP SCH (01:03)
[2022-10-22 01:09] LABS: Troponin I 0.147 ng/mL (< 0.028)
[2022-10-22 01:34] LABS: Glucose 291 mg/dL (70-105)
[2022-10-22 02:56] VITALS: TEMP 99.4
[2022-10-22] MEDS ORDERED: Folic Acid 1 MG TAB PO SCH (09:00)
[2022-10-22] MEDS ORDERED: Propranolol 10 MG TAB PO SCH (09:00)
[2022-10-22] MEDS ORDERED: Magnesium Sulfate In Water 4 GM in Premix Bag 1 BAG IVPB SCH (09:15)
[2022-10-22] MEDS ORDERED: cefTRIAXone\\ROCEPHIN 1 GM in Sodium Chloride 0.9% 100 ML IVPB SCH (20:00)
[2022-10-22] MEDS ORDERED: Lorazepam 1 MG TAB PO PRN (20:21)
[2022-10-23 08:58] LABS: Actual Bicarbonate (HCO3a) 11.4 mEq/L (22-28); Potassium - ABG Lab 6.55 mmol/L (3.70-5.30)
[2022-10-23] MEDS ORDERED: Lorazepam 1 MG TAB PO PRN (20:21)
[2022-10-23] MEDS ORDERED: Lorazepam 0.5 MG TAB PO SCH (20:30)
[2022-10-24] MEDS ORDERED: Lorazepam 0.5 MG TAB PO PRN (20:21)
== END 2022-10-22 01:30 | disposition short-term general hospital (02) | DRG 981 ==
LOC: ERS 17:22 → SDC/OP 20:25 → CCU 22:07
PROVIDERS: ADMIT Internal Medicine Nephrology; ATTEND Internal Medicine Nephrology
PROC: 4A133R1 Monitoring of Arterial Saturation, Peripheral, Percutaneous Approach (ICD-10-PCS; principal; 2022-10-21)
PROC: 0DV Gastrointestinal System, Restriction (ICD-10-PCS; 2022-10-21)
PROC: 30233N1 Transfusion of Nonautologous Red Blood Cells into Peripheral Vein, Percutaneous Approach (ICD-10-PCS; 2022-10-21)
PROC: 0BH17EZ Insertion of Endotracheal Airway into Trachea, Via Natural or Artificial Opening (ICD-10-PCS; 2022-10-21)
PROC: 5A1935Z Respiratory Ventilation, Less than 24 Consecutive Hours (ICD-10-PCS; 2022-10-21)
PROC: 30233K1 Transfusion of Nonautologous Frozen Plasma into Peripheral Vein, Percutaneous Approach (ICD-10-PCS; 2022-10-21)
PROC: 0DV68DZ Restriction of Stomach with Intraluminal Device, Via Natural or Artificial Opening Endoscopic (ICD-10-PCS; 2022-10-21)
PROC: 6A550Z2 Pheresis of Platelets, Single (ICD-10-PCS; 2022-10-21)
PROC: 06HY33Z Insertion of Infusion Device into Lower Vein, Percutaneous Approach (ICD-10-PCS; 2022-10-21)
DX: I86.4 Gastric varices (principal); J95.821 Acute postprocedural respiratory failure; N17.0 Acute kidney failure with tubular necrosis; R57.8 Other shock; K92.2 Gastrointestinal hemorrhage, unspecified; D62 Acute posthemorrhagic anemia; E87.29 Other acidosis; I85.10 Secondary esophageal varices without bleeding; F10.10 Alcohol abuse, uncomplicated; K70.30 Alcoholic cirrhosis of liver without ascites; F32.A Depression, unspecified; E83.42 Hypomagnesemia; R74.01 Elevation of levels of liver transaminase levels; Z88.8 Allergy status to other drugs, medicaments and biological substances; Z88.1 Allergy status to other antibiotic agents; Z71.41 Alcohol abuse counseling and surveillance of alcoholic
CPT/HCPCS: 36415; 36430; 36556; 71045; 80053; 80306; 80307; 81001; 82248; 82553; 82805; 82947; 83605; 83690; 83735; 84100; 84484; 84703; 85025; 85049; 85300; 85362; 85379; 85384; 85610; 85730; 86850; 86900; 86901; 87040; 87086; 93005; 94002; 94003; 96361; 96365; 96366; 96368; 96375; 96376; C9113; J0171; J0613; J0696; J1815; J2060; J2354; J2370; J2550; J2704; J3010; J3411; J3475; J3490; J7042; J7050; J7999; P9016; P9035; P9059